=== PATIENT | male | born 1975 | race Caucasian/White ===

== ENCOUNTER 2018-05-12 11:04 | Emergency (ER) | payer MEDICAID ==
[~2018-05-12] VITALS: Ht 175.3 cm; Wt 77.0 kg
[2018-05-12] MEDS ORDERED: CEFTRIAXONE 250 MG IM ONE (11:30)
[2018-05-12] MEDS ORDERED: AZITHROMYCIN 250 MG TABLET PO ONE (11:30)
[2018-05-12] MEDS ORDERED: AZITHROMYCIN 500 MG TABLET ONE (12:20)
[2018-05-12] MEDS ORDERED: CEFTRIAXONE 250 MG ONE (12:20)
--- NOTE | 2018-05-12 13:18 | NUR ---
MED REQUEST SENT TO PHARMACY. DISCHARGE AFTER MEDICATION.
[2018-05-12] MEDS ORDERED: BICILLIN-LA 2,400,000 UNITS/4 ML IM ONE (13:30)
[2018-05-12 13:44] VITALS: BP 132/61
== END 2018-05-12 13:47 | disposition home or self-care (01) ==
LOC: ED 13:39
DX: A53.9 Syphilis, unspecified (principal)
CPT/HCPCS: 36415; 86592; 87491; 87591; 96372; 99283; J0561; J0696